=== PATIENT | female | born 1985 ===

== ENCOUNTER 2022-05-09 20:15 | Outpatient (REF) | payer OTHER, SELFPAY ==
[2022-05-09 14:59] LABS: HGB 11.6 g/dL (11.2-15.7); MCH 31.9 pg (27.0-33.0); MCHC 34.1 % (32.0-36.0); MCV 93 fL (80-95); Platelet Count 155 10^3/uL (130-400); RBC 3.64 10^6/uL (3.93-5.22); RDW 12.9 % (11.7-14.6); RDW-SD 44.6 fL
[2022-05-09 15:38] LABS: Iron 45 ug/dL (50-170); Total Iron Binding Capacity 302 ug/dL (250-450); Transferrin Sat 15 % (15-50)
[2022-05-09 15:53] LABS: ALT 22 U/L (14-59); AST 19 U/L (15-37); Alkaline Phosphatase 70 U/L (46-116); Anion Gap 8.2 mmol/L (3-11); BUN 7 mg/dL (7-18); Bilirubin, Total 0.3 mg/dL (0.2-1.0); CO2 28.8 mmol/L (21.0-32.0); CREATININE 0.9 mg/dL (0.55-1.02); Calcium 9.5 mg/dL (8.5-10.1); Chloride 104 mmol/L (98-107); Estimated GFR 84.44 (mL/min/1.73m2); Glucose 82 mg/dL (74-106); Potassium 4.1 mmol/L (3.5-5.1); Sodium 141 mmol/L (136-145); TSH (W/Ref FT4) 1.25 uIU/mL (0.36-3.74); Total Protein 7.3 g/dL (6.4-8.2)
== END 2022-05-09 20:16 | disposition home or self-care (01) ==
LOC: NCHCN 20:15
PROVIDERS: Visit Provider Nurse Practitioner Family
DX: R14.0 Abdominal distension (gaseous) (principal); Z00.00 Encounter for general adult medical examination without abnormal findings; E61.1 Iron deficiency
CPT/HCPCS: 80053; 85027; 83540; 83550; 84443

== ENCOUNTER 2022-09-12 03:55 | Outpatient (CLI) | payer OTHER, SELFPAY ==
--- NOTE | 2022-09-12 14:00 | NS.NUTBLAN_ITS ---
Una was referred for digestive health nutritional counseling. Una recently moved to [place] from [place] and has been experiencing abdominal bloating, constipation. She has a hx of anemia, hair loss, thyroid disorder and has been following a vegan diet for 3 years. She currently takes a pre/pro biotic and iron. Has 2 teenage daughters. Considering having another child before she turns 40. Reports she cannot eat wheat, corn, soy and dairy. Often only has bowel movements couple times per week, often very hard. Diet Recall: Smoothie with probiotic for B, Lunch: quinoa with sweet potato and emmanuel peppers, D: chilli with beans Exercise: daily 15 min on exercise bike. 5'5 150 lbs: BMI: 25 Typical Weight: 130-132 lbs Session today focused on the FODMAP diet and ways to improve her microbiome and intestinal mobility. Recommend d/c any probiotic, protein powder in pill or powder form as often causes bloating. Encouraged Una to start introducing eggs, chicken and seafood into her diet as Vegan diets are deficient in zInc, B12 and iron. Recommended vegan multivitamin with iron, zinc, B12. Also recommend 400-800 mg magnesium oxide to help with muscle relaxation and elimination. Reviewed macronutrient needs: 1500 kcal, 100-150 g carbs, 55-60 g protein, 45-55 g fat. Recommend that she track macros and send me a 5 day food record that includes symptoms in next couple of week Suspect abdominal bloating due to gut brain axis dysregulation, damaged gut microbiome and hormonal issues. To have thyroid issues addressed this month. Provided meal plans and recommend daily exercise of 20-40 minutes. Plan: Follow up planned 10/31/22 at 2 pm.
== END 2022-09-12 03:56 | disposition home or self-care (01) ==
LOC: DS 03:55
PROVIDERS: PCP Nurse Practitioner Family; Visit Provider Dietitian, Registered
DX: R14.0 Abdominal distension (gaseous) (principal); K59.00 Constipation, unspecified; E63.8 Other specified nutritional deficiencies; Z71.3 Dietary counseling and surveillance
CPT/HCPCS: 97802